=== PATIENT | male | born 1955 | race Caucasian/White ===

== ENCOUNTER 2017-01-23 11:15 | Emergency (ER) ==
[2017-01-23 11:23] VITALS: BP 143/83; TEMP 97; BMI 29.8
--- NOTE | 2017-01-23 11:43 | ED.PDOC ---
General ED Provider: Dr. CARL DOVER Chief Complaint: Back Pain Stated Complaint: Yesterday had left flank pain that lasted a few hours then resolved. Recurred at 0530 this am. Ranks pain 12/05 then. Since 0830 pain has migrated down and around to his LLQ abdomen. Traces of bright red blood in urine. No nausea/vomiting. No fever or chills. No dysuria. No other symptoms. Time Seen by Physician: 11:45 Mode of Arrival: Walk-In Information Source: Patient Primary Care Provider: JANETH AWAD Nursing and Triage Documentation Reviewed and Agree: Yes Complaint Exam - Complaint/Exam Patient Complains of: Reports: Dysuria (No pain or difficulty voiding but saw scant blood in urine, plus right flsnk pain) Onset/Duration: 6 hours Symptoms Are: Still present Timing: Constant (occured for a few hours yesterday morning then resolved) Initial Severity: Severe Current Severity: Moderate Location of Pain: Reports: Right, Flank (and RLQ abdomen) Character: Reports: Sharp, Bloody urine Aggravating: Reports: None Alleviating: Reports: None Associated Signs and Symptoms: Reports: Back pain (right flank), Abdominal Pain (RLQ) Related History: Reports: Similar episode (yesterday) Testicular Torsion Risk Factors: Reports: None Surgical Obstruction Risk Factors: Reports: None Related Surgical History: Reports: None Abdominal Findings: Present: None Genitalia Exam: Present: Normal findings Differential Diagnoses: Pyelonephritis, Ureteral Calculi Review of Systems - Review Of Systems Constitutional: Reports: No symptoms Eyes: Reports: No symptoms Ears, Nose, Mouth, Throat: Reports: No symptoms Respiratory: Reports: No symptoms Cardiac: Reports: No symptoms GI: Reports: Abdominal pain (LLQ) : Reports: Hematuria Musculoskeletal: Reports: Back pain (right flank) Skin: Reports: No symptoms Neurological: Reports: No symptoms All Other Systems: Reviewed and Negative Past Medical History - Past Medical History Previously Healthy: Yes Endocrine: Reports: None Cardiovascular: Reports: None Respiratory: Reports: None Hematological: Reports: None Gastrointestinal: Reports: None Genitourinary: Reports: None Neuro/Psych: Reports: Other (restless leg syndrome) Musculoskeletal: Reports: Gout Cancer: Reports: None - Surgical History General Surgical History: Reports: Other (cyst removed from chest) - Family History Family History: Reports: Unknown - Social History Smoking Status: Never smoker Hx Substance Use: No Alcohol Screening: None Lives: With family - Immunizations Tetanus Shot up to Date: No Influenza Vaccine within 12 Months: No Pneumococcal Vaccine up to Date: No Physical Exam - Physical Exam Appearance: Well-appearing, Well-nourished Ill-appearing: None Pain Distress: Mild Respiratory: Airway patent, Breath sounds clear, Breath sounds equal, Respirations nonlabored Cardiovascular: RRR, Pulses normal, No rub, No murmur GI/: Soft, No masses, Bowel sounds normal, No Organomegaly, Tender (No CVA tenderness, but lower right flank tenderness) Musculoskeletal: Normal strength, ROM intact, No edema, No calf tenderness Skin: Warm, Dry, Normal color Neurological: Sensation intact Psychiatric: Affect appropriate, Mood appropriate Re-Evaluation - Re-Evaluation Time of Re-Evaluation: 16:02 Status: Improved Vital Signs Stable: Yes Pain Level: 2/10 Appearance: NAD Lungs: Clear Skin: Warm and Dry Neuro: Alert and Oriented X3 CV: RRR Critical Care Note - Critical Care Note Total Time (mins): 0 Course - Course Hematology/Chemistry: 01/23/17 12:05 01/23/17 12:05 Orders, Labs, Meds: Lab Review 01/23/17 01/23/17 01/23/17 12:05 12:05 12:47 WBC 11.90 H RBC 4.65 L Hgb 14.4 Hct 41.8 L MCV 89.9 MCH 31.0 MCHC 34.4 RDW Coeff of [place] 12.2 Plt Count 299 Immature Gran % (Auto) 0.2 Neut % (Auto) 87.7 Lymph % (Auto) 6.8 L [place] % (Auto) 4.2 Eos % (Auto) 0.2 Baso % (Auto) 0.7 Immature Gran # (Auto) 0.0 Neut # 10.4 H Lymph # 0.8 [place] # 0.5 Eos # 0.0 Baso # 0.1 Sodium 142 Potassium 3.9 Chloride 105 Carbon Dioxide 26 Anion Gap 14.9 BUN 16 Creatinine 1.09 Estimated GFR (MDRD) 68.00 BUN/Creatinine Ratio 14.67 Glucose 120 H Calcium 9.8 Total Bilirubin 0.61 AST 23 ALT 34 Alkaline Phosphatase 67 Total Protein 7.1 Albumin 3.9 Globulin 3.2 Albumin/Globulin Ratio 1.22 Urine Color Yellow Urine Clarity Cloudy Urine pH 5.0 Ur Specific [place] >=1.030 Urine Protein 1+ Urine Glucose (UA) Negative Urine Ketones Negative Urine Blood Negative Urine Nitrite Negative Urine Bilirubin Negative Urine Urobilinogen 0.2 Ur Leukocyte Esterase Negative Ur Squamous Epith Cells Not present Urine Mucus 2+ Orders Category Date Time Status CBC W/ AUTO DIFF Stat LAB 01/23/17 12:05 Completed COMPREHENSIVE METABOLIC PANEL Stat LAB 01/23/17 12:05 Completed URINALYSIS C & S IF INDICATED Stat LAB 01/23/17 12:47 Completed Ketorolac Tromethamine [Toradol] MEDS 01/23/17 14:23 Discontinued 60 mg IM ONCE STA CT ABD/PEL WO RENAL STONE PROT Stat RADS 01/23/17 13:48 Completed Medications Discontinued Medications Generic Name Dose Route Start Last Admin Trade Name Freq PRN Reason Stop Dose Admin Ketorolac Tromethamine 60 mg 01/23/17 14:23 01/23/17 14:30 Toradol IM 01/23/17 14:24 60 mg ONCE STA Administration Vital Signs: Temp Pulse Resp BP Pulse Ox 01/23/17 11:17 97.0 F L 59 L 18 143/83 H 98 Departure - Departure Time of Disposition: 16:05 Disposition: HOME SELF-CARE Discharge Problem: Ureterolithiasis Instructions: Kidney Stones (ED) Condition: Good Pt referred to PMD for follow-up: No (See PCP if symptoms fail to resolve or recur.) Allergies/Adverse Reactions: Allergies No Known Allergies Allergy (Unverified 01/23/17 11:23) Home Medications: Ambulatory Orders Allopurinol 100 mg PO DAILY 01/23/17 Levothyroxine Sodium [Synthroid] 50 mg PO DAILY 01/23/17 Pramipexole Di-HCl [Pramipexole Dihydrochloride] 0.5 mg PO BEDTIME 01/23/17 Disposition Discussed With: Patient
[2017-01-23 12:33] LABS: ALBUMIN 3.9 g/dL (3.4-5.0); ALBUMIN/GLOBULIN RATIO 1.22; ANION GAP 14.9; BILIRUBIN,TOTAL 0.61 mg/dL (0.00-1.20); BUN/CREATININE RATIO 14.67; CALCIUM 9.8 mg/dL (8.2-10.2); CREATININE 1.09 mg/dL (0.60-1.10); POTASSIUM 3.9 mmol/L (3.5-5.1); TOTAL PROTEIN 7.1 g/dL (5.8-8.1)
[2017-01-23 12:38] LABS: HEMATOCRIT 41.8 % (42.0-52.0); HEMOGLOBIN 14.4 g/dl (14.0-18.0); RED BLOOD COUNT 4.65 10^6/ul (4.70-6.10)
[2017-01-23 12:39] LABS: BASOPHILS % (AUTO) 0.7 % (0.0-3.0); EOSINOPHILS % (AUTO) 0.2 % (0.0-7.0); LYMPHOCYTES % (AUTO) 6.8 (10.0-50.0); MEAN CORPUSCULAR HGB CONC 34.4 (31.8-35.4); MEAN CORPUSCULAR VOLUME 89.9 fl (80.0-94.0); MONOCYTES % (AUTO) 4.2 (0-10); NEUTROPHILS # (AUTO) 10.4 K/ul (2.0-6.9); NEUTROPHILS % (AUTO) 87.7; PLATELET COUNT 299 10^3/uL (140-440)
[2017-01-23 12:40] LABS: BASOPHILS # (AUTO) 0.1 K/uL (0-0.2); IMMATURE GRANULOCYTE % (AUTO) 0.2 % (0.0-5.0); LYMPHOCYTES # (AUTO) 0.8 K/uL (0.60-3.4); MONOCYTES # (AUTO) 0.5 K/uL (0.4-2.0)
[2017-01-23 12:57] LABS: BILIRUBIN,URINE Negative (NEGATIVE); KETONES,URINE Negative (NEGATIVE); LEUKOCYTE ESTERASE ,URINE Negative (NEGATIVE); NITRITE,URINE Negative (NEGATIVE); PROTEIN,URINE 1+ (NEGATIVE); URINE, BLOOD Negative (NEGATIVE)
[2017-01-23 13:01] LABS: ADD URINE MICROSCOPIC YES
[2017-01-23] MEDS ORDERED: TORADOL IVP STA (13:48)
[2017-01-23] MEDS ORDERED: TORADOL IM STA (14:23)
--- NOTE | 2017-01-23 14:59 | CT ---
EXAM: CT ABDOMEN AND PELVIS HISTORY: Right flank pain TECHNIQUE: CT abdomen and pelvis without intravenous contrast. Images were reconstructed using 3 mm section thickness. Reformations were prepared. COMPARISON: None FINDINGS: No focal hepatic or splenic lesions identified within limits of this unenhanced exam. Gallbladder, p ancreas and adrenal glands are within normal limits. There is mild right hydronephrosis and mild to moderate right perinephric fat stranding. The right ureter is mildly dilated. At the right vesicour eteral junction, nearly within the urinary bladder there is a 0.34 x 0.34 x 0.30 cm calculus leading to the mild obstruction. There are multiple small cystic spaces within the central left kidney which may represent peripelvic cysts. Less likely evidence of hydronephrosis. There is only subtle left perinephric fat stranding which is nonspecific. The left ureter is clear. No intrarenal calculi are currently seen. There is mild circumferential urinary bladder wall thickening. Significant lobulat ion and moderate enlargement of the prostate gland is noted. There is no gastric distension. Normal appendix which is found in the posterior upper right abdomen just inferior to the hepatic flexure. The cecum is found in the posterior right upper quadrant. Nor mal bowel gas pattern. No ascites. Ventral abdominal wall reveals a small fatty umbilical hernia wi th a transverse neck of about 1.1 cm likely of no current clinical significance. The bones within no rmal limits. Lung bases reveal minimal dependent atelectasis. No pneumoperitoneum. IMPRESSION: 1. Mild right hydronephrosis secondary to a 0.34 cm calculus which is nearly within the urinary blad meghann, lodged at the vesicoureteral junction. 2. Probable small peripelvic cysts of the left kidney. 3. Moderate lobulation and enlargement of the prostate with mild circumferential urinary bladder wal l thickening. The thickening of the urinary bladder may be related to chronic partial outlet obstruc tion from the enlarged prostate.
== END 2017-01-23 16:17 | disposition home or self-care (01) ==
LOC: ED 11:15
DX: N20.1 Calculus of ureter (principal)
CPT/HCPCS: 36415; 74176; 80053; 81001; 85025; 96372; 99283

== ENCOUNTER 2018-12-17 14:20 | Outpatient (CLI) | END 2018-12-17 14:21 | disposition home or self-care (01) | LOC: LAB 14:20 | PROVIDERS: ATTEND Family Medicine | DX: R50.9 Fever, unspecified (principal) | CPT/HCPCS: 36415; 80053; 81001; 85025; 86757; 86788; 86789; 87086; 87798 ==